=== PATIENT | female | born 1975 | race Caucasian/White ===

== ENCOUNTER 2019-12-23 13:39 | Outpatient (CLI) | payer OTHER, SELFPAY ==
--- NOTE | 2019-12-27 10:37 | WPDPFTINT ---
PFT Interpretation PFT Interpretation: DOS: 12/23/2019 REQUESTING: Dr. Damaso Ramos REASON FOR TESTING: COPD PULMONARY FUNCTION TESTS Results are reliable and reproducible. Spirometry: FEV1 is 63%, 1.57 L, moderately reduced. FVC is 78%, mildly decreased. FEV1% is decreased consistent with airflow obstruction. There is a 16% increase in FEV1 with bronchodilator which is greater than 200 ml. This is a significant increase. The KOH15-91% is severely decreased at 26% predicted, and this increases 46% after bronchodilator. Lung volumes: TLC 95%, normal. RV/TLC is increased consistent with airtrapping. Increased airway resistance. Diffusion: DLCO mildly decreased at 65%. Flow volume loop: Scooping of the expiratory limb. IMPRESSION: Moderate obstructive ventilatory impairment which is severe in the small airways with mild air trapping and mild diffusion impairment, excellent response to bronchodilator. 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 Julia Lamar MD
--- NOTE | 2019-12-27 10:44 | WPDSIXMINUTE ---
Six Minute Walk Six Minute Walk: DOS: 12/23/2019 REQUESTING: Dr. Damaso Ramos REASON FOR TESTING: COPD SIX MINUTE WALK This test was conducted per ATS guidelines, on room air. The initial saturation was 94%, and the pulse was 93. The patient walked for 6 minutes without stopping, completing 1200 feet/ 366 meters. The saturation ranged from 93 to 98%. The pulse 82 to 102. IMPRESSION: This walk study shows no hypoxemia. No supplemental oxygen is required with exertion.
== END 2019-12-23 13:40 | disposition home or self-care (01) ==
PROVIDERS: PCP Internal Medicine Infectious Disease; Visit Provider Internal Medicine Pulmonary Disease
DX: J44.9 Chronic obstructive pulmonary disease, unspecified (principal); R94.2 Abnormal results of pulmonary function studies
CPT/HCPCS: 94060; 94618; 94726; 94729

== ENCOUNTER 2020-01-25 08:48 | Outpatient (CLI) | payer OTHER, SELFPAY ==
--- NOTE | ~2020-01-25 | PE_ITS ---
EXAMINATION: PET skull to mid thigh DATE: 01/25/2020 12:30 INDICATION: Multiple pulmonary nodules TECHNIQUE: Blood glucose level was 97 mg/dL. 10.099 mCi of 18-fluorodeoxyglucose (18-FDG) was adminis tered i.v. Low dose computed tomography (CT) images were acquired from the base of the brain to the p roximal thighs for attenuation correction and anatomic localization. Positron emission tomography (PE T) images were acquired in the same distribution beginning 77 minutes after injection. Images includi ng fused PET/CT images were reconstructed in axial, coronal, and sagittal planes. Automated exposure control technique was employed. The dose-length product was 222.79mGy-cm. COMPARISON: CT of the chest, abdomen and pelvis dated 09/10/2011 FINDINGS: Head/neck: There is symmetric increased activity in the oral cavity, palatine and lingual tonsils, laryngeal mus cles and ocular muscles without CT correlate, likely physiologic. There is extensive likely physiolog ic increased uptake in the cervical paraspinal and scalene musculature without radiologic correlate. No pathologically enlarged cervical lymphadenopathy or suspicious foci of increased FDG uptake in the visualized head or neck. Chest: Post operative change of prior anterior right thoracotomy with resection of portions of the third-fif th ribs and of right upper lobectomy. Cluster of small mildly FDG avid nodules in the superior segmen t of the right lower lobe the largest measuring 11 x 6 mm with maximal SUV of 2.2. Similar cluster of small nodules in the medial segment of the right middle lobe, the largest being 10 x 7 mm with maxim al SUV of 1.4. There is relatively symmetric likely physiologic increased FDG uptake throughout the i ntercostal musculature of the left and right thorax as well as some of the musculature at the right s houlder girdle without radiologic correlate. No pathologically enlarged thoracic lymphadenopathy. The re is a small focus of increased FDG uptake centered in the medial sternal fat between the posterior margin of the aorta and the T10 vertebral body without evident radiologic correlate. Abdomen/pelvis/proximal thighs: Physiologic renal accumulation and excretion of FDG activity in the kidneys, bladder and along portio ns of ureters. Normal degree and heterogenous pattern of increased uptake throughout the liver withou t radiologic correlate or dominant FDG avid lesion. The gallbladder, pancreas, spleen and bilateral a drenal glands are normal. Mild to moderate uptake scattered throughout the bowels without radiologic correlate, also likely physiologic. Diffuse mild increased endometrial uptake throughout the uterus l ikely related to phase of menstrual cycle. Infrarenal IVC filter. Likely physiologic mild increased u ptake in the gluteal musculature most prominent at the left gluteus minimus. No other abnormal foci o f increased FDG uptake or pathologically enlarged lymphadenopathy in the abdomen, pelvis or proximal thighs. Musculoskeletal: Median sternotomy wires. No suspicious lytic, blastic or FDG avid bone lesions. IMPRESSION: 1. Minimal FDG uptake associated with a couple clusters of small nodules in the superior segment of t he right lower lobe and medial segment of the right middle lobe with both the mild FDG activity and g eographic distributions favoring infectious/inflammatory nodules over malignancy. Recommend 6-12 daysi h follow-up chest CT. 2. Indeterminate small focus of mild increased FDG uptake in the posterior mediastinum between the ao rta and T10 vertebral body without evident radiologic correlate. This could be reassessed on CT at th e same time as the pulmonary nodules. 3. Postoperative change of prior right upper lobectomy with anterior chest wall defect at the site of a prior thoracotomy. 4. IVC filter. Reviewed, dictated and
[2020-01-25 09:33] LABS: Glucose Point of Care 97 (65-105)
== END 2020-01-25 08:49 | disposition home or self-care (01) ==
PROVIDERS: PCP Internal Medicine Infectious Disease; Visit Provider Nurse Practitioner
DX: R91.8 Other nonspecific abnormal finding of lung field (principal); Z90.2 Acquired absence of lung [part of]
CPT/HCPCS: 78815; A9552

== ENCOUNTER 2020-06-20 07:24 | Outpatient (CLI) | payer OTHER, SELFPAY ==
--- NOTE | ~2020-06-20 | PE_ITS ---
EXAMINATION: PET skull to mid thigh DATE: 06/20/2020 10:11 INDICATION: Multiple nodules of the lung TECHNIQUE: Blood glucose level was 92 mg/dL. 9.851 mCi of 18-fluorodeoxyglucose (18-FDG) was administ ered i.v. Low dose computed tomography (CT) images were acquired from the base of the brain to the pr oximal thighs for attenuation correction and anatomic localization. Positron emission tomography (PET ) images were acquired in the same distribution beginning 57 minutes after injection. The dose-length product (DLP) was 221.53 mGy-cm. COMPARISON: 01/25/2020 FINDINGS: Head/neck: No abnormal FDG uptake is identified. FDG uptake in the oral cavity and vocal cords withou t suspicious CT correlate is likely physiologic. Chest: Again seen are nodules in the superior segment of the right lower lobe which demonstrate mild FDG uptake. The nodules demonstrate slight interval decrease in size. A previously described nodule i n the medial aspect of the right middle lobe has also decreased in size. No new or suspicious pulmona ry nodule is identified. There is a defect in the right anterior chest wall related to prior surgery. There is no pleural effusion or pneumothorax. No pathologically enlarged thoracic lymph nodes are id entified. The heart size is normal. Changes of median sternotomy are noted. The previously described focus of abnormal FDG uptake in the posterior mediastinum is no longer identified. Abdomen/pelvis/proximal thighs: Physiologic FDG activity is present in the bowel and urinary tract. N o abnormal FDG uptake is identified. The liver, spleen, pancreas, gallbladder, and adrenal glands are normal. The kidneys are unremarkable. Inferior vena cava filter is noted. No pathologically enlarged abdominal or pelvic lymph nodes are identified. There is no free intraperitoneal gas or evidence of bowel obstruction. A moderate volume of colonic stool is present. Musculoskeletal: No abnormal FDG uptake is identified. IMPRESSION: 1. Persistent but decreased nodules in the right middle and lower lobes with mild FDG uptake, most co nsistent with infection/inflammation. 2. Resolution of the previously described indeterminate small focus of FDG uptake in the posterior me diastinum. Reviewed, dictated and finalized at location A. TH INFORMATICS INSTRUCTOR IMPRESSION: 1. Persistent but decreased nodules in the right middle and lower lobes with mi ld FDG uptake, most consistent with infection/inflammation. 2. Resolution of the previously described indeterminate small focus of FDG upta ke in the posterior mediastinum.
[2020-06-20 08:04] LABS: Glucose Point of Care 92 (65-105)
== END 2020-06-20 07:25 | disposition home or self-care (01) ==
PROVIDERS: PCP Internal Medicine Infectious Disease; Visit Provider Nurse Practitioner
DX: R91.8 Other nonspecific abnormal finding of lung field (principal)
CPT/HCPCS: 78815; 82948; A9552

== ENCOUNTER 2023-02-19 08:29 | Outpatient (CLI) | payer OTHER, SELFPAY ==
--- NOTE | 2023-02-19 11:00 | NEURO_ITS ---
Impression: # Non-diabetic complains of numbness of hands. # Bilateral Carpal Tunnel Syndrome. # No ulnar neuropathy. # Normal needle/EMG. Nerve Conduction Studies Anti Sensory Summary Table Stim Site NR Peak (ms) P-T Amp (?V) Site1 Site2 Delta-P (ms) Dist (cm) Ghassan (m/s) Left Median Anti Sensory (2-3nd Digit) Wrist 5.7 18.8 Wrist 2-3nd Digit 5.7 14.0 25 Wrist 5.8 35.1 Wrist 2-3nd Digit 5.7 14.0 25 Right Median Anti Sensory (2-3nd Digit) Wrist 4.8 32.0 Wrist 2-3nd Digit 4.8 14.0 29 Wrist 5.1 29.2 Wrist 2-3nd Digit 4.8 14.0 29 Left Radial Anti Sensory (Base 1st Digit) Wrist 2.1 50.6 Wrist Base 1st Digit 2.1 0.0 Right Radial Anti Sensory (Base 1st Digit) Wrist 2.3 15.6 Wrist Base 1st Digit 2.3 0.0 Left Ulnar Anti Sensory (5th Digit) Wrist 2.7 92.5 Wrist 5th Digit 2.7 14.0 52 Right Ulnar Anti Sensory (5th Digit) Wrist 2.5 80.3 Wrist 5th Digit 2.5 14.0 56 Motor Summary Table Stim Site NR Onset (ms) O-P Amp (mV) Site1 Site2 Delta-0 (ms) Dist (cm) Ghassan (m/s) Left Median Motor (Abd Poll Brev) Wrist 4.5 4.1 Elbow Wrist 4.3 24.0 56 Elbow 8.8 4.5 Right Median Motor (Abd Poll Brev) Wrist 4.3 9.3 Elbow Wrist 4.9 25.0 51 Elbow 9.2 6.9 Left Ulnar Motor (Abd Dig Minimi) Wrist 2.5 5.9 A Elbow Wrist 4.5 26.0 58 A Elbow 7.0 5.7 Right Ulnar Motor (Abd Dig Minimi) Wrist 2.6 4.6 A Elbow Wrist 4.8 27.0 56 A Elbow 7.4 3.8 F Wave Studies NR F-Lat (ms) L-R F-Lat (ms) Left Median (Mrkrs) (Abd Poll Brev) 29.30 0.00 Right Median (Mrkrs) (Abd Poll Brev) 29.30 0.00 Left Ulnar (Mrkrs) (Abd Dig Min) 28.13 0.00 Right Ulnar (Mrkrs) (Abd Dig Min) 28.13 0.00 EMG Side Muscle Nerve Root Ins Act Fibs Amp Dur Recrt Comment Right 1stDorInt Ulnar C8-T1 Nml Nml Nml Nml Nml Right Ext Indicis Radial (Post Int) C7-8 Nml Nml Nml Nml Nml Right Ext Digitorum Radial (Post Int) C7-8 Nml Nml Nml Nml Nml Right BrachioRad Radial C5-6 Nml Nml Nml Nml Nml Right PronatorTeres Median C6-7 Nml Nml Nml Nml Nml Right Abd Poll Brev Median C8-T1 Nml Nml Nml Nml Nml Left 1stDorInt Ulnar C8-T1 Nml Nml Nml Nml Nml Left Ext Indicis Radial (Post Int) C7-8 Nml Nml Nml Nml Nml Left Ext Digitorum Radial (Post Int) C7-8 Nml Nml Nml Nml Nml Left BrachioRad Radial C5-6 Nml Nml Nml Nml Nml Left PronatorTeres Median C6-7 Nml Nml Nml Nml Nml Left Abd Poll Brev Median C8-T1 Nml Nml Nml Nml Nml MTDD
== END 2023-02-19 08:30 | disposition home or self-care (01) ==
LOC: ANHNEURO 08:30
PROVIDERS: PCP Internal Medicine Infectious Disease; Visit Provider Internal Medicine
DX: G56.03 Carpal tunnel syndrome, bilateral upper limbs (principal)
CPT/HCPCS: 95886; 95911

== ENCOUNTER 2024-04-22 10:08 | Outpatient (CLI) | payer OTHER, SELFPAY ==
--- NOTE | ~2024-04-22 | PE_ITS ---
EXAMINATION: PET skull to mid thigh DATE: 04/22/2024 12:35 INDICATION: Lung nodules TECHNIQUE: Blood glucose level was 98 mg/dL. 7.297 mCi of 18-fluorodeoxyglucose (18-FDG) was administ ered i.v. Low dose computed tomography (CT) images were acquired from the base of the brain to the pr oximal thighs for attenuation correction and anatomic localization. Positron emission tomography (PET ) images were acquired in the same distribution beginning 50 minutes after injection. Images includin g fused PET/CT images were reconstructed in axial, coronal, and sagittal planes. Automated exposure c ontrol technique was employed. The dose-length product was 562.40mGy-cm. COMPARISON: 06/30/2020 FINDINGS: Head/neck: There is symmetric increased activity in the oral cavity, palatine and lingual tonsils, laryngeal mus cles and ocular muscles without CT correlate, likely physiologic. There is increased FDG uptake assoc iated with multiple normal-sized cervical lymph nodes in the bilateral posterior cervical triangles a nd along the bilateral jugular chains. For reference 11 x 8 mm level 2 right jugular chain lymph node densities maximal SUV of 7.0 and the more caudal right jugular chain lymph node measuring 10 x 7 mm at the level of the cricoid cartilage demonstrate maximal SUV of 10.4. No frankly pathologically enla rged cervical lymph nodes identified. Chest: Post operative change of prior anterior right thoracotomy with resection of portions of the third-fif th ribs and of right upper lobectomy. Cluster of small mildly FDG avid nodules in the superior segmen t of the right lower lobe the largest measuring 11 x 6 mm with maximal SUV of 2.2. Mild linear atelec tasis/scarring in the right middle lobe along with an unchanged 9 x 8 mm nodule in the right middle l obe which is without FDG activity. There is a new 6 mm pleural-based nodule in the anterobasilar righ t lower lobe along side the margin of the posterior fifth rib osteotomy with mildly increased FDG upt nichole with maximal SUV of 2.1. There is a second more caudal nodule in the anterior basilar segment of the right lower lobe also along the pleura nearly caudal aspect of the thoracotomy defect along a chr onic linear band of discoid atelectasis/scarring. The nodule measures 1.3 x 1.0 cm with maximal SUV o f 2.7. The prior cluster of nodules in the superior segment of the right lower lobe have nearly resol mickey with residual 5 mm nodule with minimal FDG activity with maximal SUV of 1.3. Mild dependent atele ctasis in the posterior left lower lobe. No pleural effusion. Heart size is normal. No pericardial ef fusion. Thoracic aorta is normal in caliber. There is increased FDG uptake with maximal SUV of 5.4 at a normal-sized subcarinal lymph node measuring 9 mm in maximal short axis diameter. Mildly FDG avid right axillary lymph node measuring 7 mm in maximal short axis diameter with prominent central fatty hilum with maximal SUV of 2.6. Abdomen/pelvis/proximal thighs: Physiologic renal accumulation and excretion of FDG activity in the kidneys, bladder and along portio ns of ureters. Normal degree and heterogenous pattern of increased uptake throughout the liver withou t radiologic correlate or dominant FDG avid lesion. The gallbladder, pancreas, spleen and bilateral a drenal glands are normal. Mild uptake scattered throughout the bowels without radiologic correlate, a lso likely physiologic. There is diffuse increased uptake throughout the endometrial canal with maxim al SUV of 6.2. Infrarenal IVC filter in expected position. 12 mm cystic lesion at the right adnexa wi th maximal SUV of 5.1. Normal-sized FDG avid left inguinal lymph node measuring 8 mm in maximal short axis diameter with maximal SUV of 8.0. No other abnormal foci of increased FDG uptake or pathologica lly enlarged lymphadenopathy in the abdomen, pelvis or proximal thighs. Musculoskeletal: Prior median sternotomy. There is an instrumented posterior spinal fusion from C2 through T1 with valente ateral vertical ava and lateral mass/pedicle screw fixation. No suspicious lytic, blastic or abnormal ly FDG avid bone lesions. IMPRESSION: 1. There are couple new mildly FDG avid nodules in the peripheral anterior basilar segment of the rig ht lower lobe along the posterior margin of a right chest wall thoracotomy defect which could be infe ctious, inflammatory or malignant in etiology. The relatively low FDG activity is reassuring and the location along the chest wall defect suggests friction related to inflammatory scarring. Consider 3 m onth follow-up chest CT. 2. Significant improvement in clusters of nodules previously noted in the right middle lobe and super ior segment of the right lower lobe which are likely infectious or inflammatory in etiology. 3. Multilevel mild to moderately FDG avid but normal sized lymph nodes in the neck, subcarinal region , right axilla and left inguinal regions. Given the scattered distribution in normal size would favor reactive lymphadenopathy over lymphoma or metastatic disease. 4. Diffuse increased uptake throughout the endometrial complex which could be physiologic related to menstrual cycle. Could consider pelvic ultrasound for further evaluation of this as well as of a subc entimeter cystic lesion with mild FDG uptake at the right ovary most likely a physiologic follicle or corpus luteum cyst. Reviewed, dictated and finalized at location A. EL KILN OPERATOR IMPRESSION: 1. There are couple new mildly FDG avid nodules in the peripheral anterior basi lar segment of the right lower lobe along the posterior margin of a right chest wall thoracotomy defect which could be infectious, inflammatory or malignant i n etiology. The relatively low FDG activity is reassuring and the location shea g the chest wall defect suggests friction related to inflammatory scarring. Con head start teacher 3 month follow-up chest CT. 2. Significant improvement in clusters of nodules previously noted in the right middle lobe and superior segment of the right lower lobe which are likely infe ctious or inflammatory in etiology. 3. Multilevel mild to moderately FDG avid but normal sized lymph nodes in the n roc, subcarinal region, right axilla and left inguinal regions. Given the scatt ered distribution in normal size would favor reactive lymphadenopathy over lymp felix or metastatic disease. 4. Diffuse increased uptake throughout the endometrial complex which could be p hysiologic related to menstrual cycle. Could consider pelvic ultrasound for fur ther evaluation of this as well as of a subcentimeter cystic lesion with mild F DG uptake at the right ovary most likely a physiologic follicle or corpus luteu m cyst.
[2024-04-22 10:26] LABS: Glucose Point of Care 98 mg/dl (65-105)
== END 2024-04-22 10:09 | disposition home or self-care (01) ==
PROVIDERS: PCP Internal Medicine Gastroenterology; Visit Provider Nurse Practitioner
DX: R91.8 Other nonspecific abnormal finding of lung field (principal)
CPT/HCPCS: 78815; A9552